=== PATIENT | female | born 1995 | race Caucasian/White ===

== ENCOUNTER 2016-05-07 16:57 | Emergency (ER) | payer OTHER ==
[~2016-05-07] VITALS: Ht 170.2 cm; Wt 65.2 kg
[2016-05-07 17:07] VITALS: TEMP 36.7; Ht 170.2 cm; Wt 65.2 kg
[2016-05-07 17:55] VITALS: BP 122/76; PULSE 68; O2SAT 99
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
== END 2016-05-07 17:55 | disposition home or self-care (01) ==
LOC: C.EDB 16:59 → C.EDD 17:55
DX: M25.512 Pain in left shoulder (principal); M54.2 Cervicalgia; V43.62XA Car passenger injured in collision with other type car in traffic accident, initial encounter; I73.00 Raynaud's syndrome without gangrene